=== PATIENT | male | born 1985 | race Native Hawaiian/Other Pacific Islander ===

== ENCOUNTER 2020-04-20 09:37 | Emergency (ER) | payer OTHER ==
[~2020-04-20] VITALS: Ht 175.3 cm; Wt 65.8 kg
[2020-04-20 10:18] LABS: PLATELET COUNT 362 K/uL (142-355)
[2020-04-20 10:44] LABS: POTASSIUM 3.9 mmol/L (3.6-5.2)
[2020-04-20 11:31] VITALS: BP 136/84; TEMP 98
== END 2020-04-20 11:31 | disposition home or self-care (01) ==
LOC: ED 09:44
PROVIDERS: Hospitalist
DX: L02.415 Cutaneous abscess of right lower limb (principal)
CPT/HCPCS: 36415; 80048; 85027; 87040; 96365; 96375; 99284; J1885; J2270; J2405; J3370

== ENCOUNTER 2021-04-24 00:06 | Emergency (ER) | payer OTHER ==
[~2021-04-24] VITALS: Ht 175.3 cm; Wt 68.0 kg
[2021-04-24 00:15] VITALS: BP 138/92; TEMP 97
== END 2021-04-24 00:50 | disposition home or self-care (01) ==
LOC: ED 00:06
DX: Z53.21 Procedure and treatment not carried out due to patient leaving prior to being seen by health care provider (principal)
CPT/HCPCS: 99281